=== PATIENT | female | born 1990 | race Caucasian/White ===

== ENCOUNTER → 2016-07-17 | Outpatient (CLI) | payer BC ==
[~2016-07-17] MED LIST: CLIN300C OR; DECADRON OR; DOCU10ELUD PO; FERR225T PO; IBUP600T26 PO; PERCOCET PO; VICO5TAB OR; VICODIN; VICODIN OR
[2016-07-17 21:13] LABS: CONTROL LINE HCG INT CTR LINE PRESENT
== END ==
LOC: M LRY 15:33
PROVIDERS: ATTEND Advanced Practice Midwife
DX: N91.2 Amenorrhea, unspecified (principal)

== ENCOUNTER → 2017-03-27 | Outpatient (REF) | payer BC ==
[2017-03-27 16:44] LABS: CONTROL LINE HCG INT CTR LINE PRESENT
[2017-03-27 16:50] LABS: ALBUMIN 3.7 GM/DL (3.2-5.2); ALBUMIN/GLOBULIN RATIO 0.95 (1.00-1.93); ALKALINE PHOSPHATASE 96 U/L (45-117); ALT/SGPT 72 U/L (12-78); ANION GAP 6 MEQ/L (8-16); AST/SGOT 36 U/L (7-37); BILIRUBIN,TOTAL 0.4 MG/DL (0.2-1.0); BLOOD UREA NITROGEN 12 MG/DL (7-18); CALCIUM LEVEL 8.7 MG/DL (8.5-10.1); CARBON DIOXIDE LEVEL 28 MEQ/L (21-32); CHLORIDE LEVEL 109 MEQ/L (98-107); CHOLESTEROL LEVEL 198 MG/DL (<200); CREATININE FOR GFR 0.78 MG/DL (0.55-1.02); FREE T4 1.13 NG/DL (0.76-1.46); GLOMERULAR FILTRATION RATE > 60.0 (>60); GLUCOSE, FASTING 88 MG/DL (70-105); POTASSIUM SERUM 4.2 MEQ/L (3.5-5.1); SODIUM LEVEL 143 MEQ/L (136-145); TOTAL PROTEIN 7.6 GM/DL (6.4-8.2); TRIGLYCERIDES LEVEL 146 MG/DL (<150)
== END ==
LOC: M SFHCCLAY 10:12
PROVIDERS: ATTEND Family Medicine
DX: R60.0 Localized edema (principal); E66.01 Morbid (severe) obesity due to excess calories; N91.2 Amenorrhea, unspecified

== ENCOUNTER → 2017-11-30 | Outpatient (REF) | payer BC | LOC: M LAB REF 17:09 | DX: Z12.4 Encounter for screening for malignant neoplasm of cervix (principal) | CPT/HCPCS: G0123 ==

== ENCOUNTER → 2018-04-05 | Outpatient (REF) | payer BC ==
[~2018-04-05] MED LIST changes: +KLON0.5T PO; +LAMO100T; +METF500T13; +TOPA100T12 PO; +TRI-LO-MARZIA
== END ==
LOC: M LAB REF 15:17
PROVIDERS: ATTEND Physician Assistant
DX: J02.9 Acute pharyngitis, unspecified (principal)

== ENCOUNTER 2019-01-25 21:54 | Emergency (ER) | payer BC ==
[~2019-01-25] VITALS: Ht 160 cm; Wt 159.1 kg
[~2019-01-25 21:54] MED LIST changes: -DOCU10ELUD PO; +DOCU5LIQ PO; +OXYC1TAB23 PO; -PERCOCET PO
[2019-01-25] MEDS ORDERED: OSEL75CA2 PO (22:23)
[2019-01-25 23:32] LABS: INFLUENZA A AMPLIFICATION NEGATIVE (NEGATIVE); INFLUENZA B AMPLIFICATION NEGATIVE (NEGATIVE)
[2019-01-25] MEDS ORDERED: MUCI600T31 PO (23:56)
[2019-01-25] MEDS ORDERED: BENZ200C70 PO (23:56)
[2019-01-25] MEDS ORDERED: VENTAER INH (23:56)
[2019-01-26] MEDS ORDERED: BENZONATATE 100 MG CAP PO ONE
[2019-01-26 00:15] VITALS: BP 120/65
--- NOTE | 2019-01-26 09:43 | REP ---
REASON: Cough and fever. COMPARISON: No priors. FINDINGS: The superior mediastinal structures are midline. The cardiac silhouette is unremarkable in size, shape, and position. The diaphragmatic surfaces of the lungs are regular, and the costophrenic angles are clear. The pulmonary villafana are clear. The imaged osseous structures are intact. IMPRESSION: There is no acute cardiopulmonary disease. Electronically Signed by Chago Griffith DO 01/26/2019 09:50 A
== END 2019-01-26 00:24 | disposition home or self-care (01) ==
LOC: M ED 21:54
DX: J20.9 Acute bronchitis, unspecified (principal); Z79.899 Other long term (current) drug therapy

== ENCOUNTER → 2019-08-28 | Outpatient (REF) | payer BC ==
[~2019-08-28] MED LIST changes: +BENZ200C70 PO; -LAMO100T; +LAMO100T3; +MUCI600T31 PO; +OSEL75CA2 PO; +VENTAER INH
== END ==
LOC: M SFHCWAGY 17:13
PROVIDERS: ATTEND Nurse Practitioner Women's Health
DX: Z11.3 Encounter for screening for infections with a predominantly sexual mode of transmission (principal)

== ENCOUNTER 2019-08-30 21:45 | Emergency (ER) | payer BC ==
[~2019-08-30] VITALS: Ht 160 cm; Wt 164.3 kg
[2019-08-30 22:26] LABS: BASO # 0.1 10^3/uL (0.0-0.2); BASO % 0.6 % (0.0-1.0); EOS # 0.1 10^3/uL (0.0-0.5); EOS % 1.1 % (0.0-3.0); HEMATOCRIT 39.4 % (36.0-47.0); HEMOGLOBIN 12.5 g/dl (12.0-15.5); LYMPH # 2.8 10^3/uL (1.5-5.0); LYMPH % 30.6 % (24.0-44.0); MEAN CORPUSCULAR HEMOGLOBIN 28.6 pg (27.0-33.0); MEAN CORPUSCULAR HGB CONC 31.7 g/dl (32.0-36.5); MEAN CORPUSCULAR VOLUME 90.2 fl (80.0-96.0); MONO # 0.5 10^3/uL (0.0-0.8); NEUTROPHILS # 5.8 10^3/uL (1.5-8.5); NEUTROPHILS % 62.3 % (36.0-66.0); PLATELET COUNT, AUTOMATED 173 10^3/uL (150-450); RED BLOOD COUNT 4.37 10^6/uL (4.00-5.40); WHITE BLOOD COUNT 9.2 10^3/uL (4.0-10.0)
[2019-08-30 22:36] LABS: PLATELET CLUMPS SMALL AMT; PLATELET ESTIMATE NORMAL (NORMAL)
[2019-08-30] MEDS ORDERED: RHOGAM 300 MCG (1500 IU) INJ (J2790) IM ONE (23:45)
--- NOTE | 2019-08-31 00:15 | REPVR ---
PROCEDURE INFORMATION: Exam: US First Trimester, Transabdominal Exam date and time: 08/30/2019 11:58 PM Age: 29 years old Clinical indication: Lmp or gestational age (in weeks): 8wks; Other: Vag bleeding; ; Additional info: Cesar fr[place] TECHNIQUE: Imaging protocol: Real-time transabdominal obstetrical ultrasound of the maternal pelvis and a first trimester , less than 14 weeks 0 days, with image documentation. COMPARISON: No relevant prior studies available. FINDINGS: Well defined endometrial fluid collection suggests early gestational sac. Mean sac diameter is 10.8 mm. No evidence of implantational hemorrhage. Yolk sac is present. No identifiable pole at this point. Right ovary is not visualized. Left ovary measures 2 x 2.6 x 1.9 cm and demonstrates normal Doppler flow. No abnormal volume of free pelvic fluid and no abnormal adnexal mass. IMPRESSION: Probable early intrauterine at roughly 5 weeks estimated gestational age. No pole is identified at this point. Follow-up with repeat ultrasound and serial beta-hCG measurements is recommended, as indicated clinically. No ancillary evidence of ectopic . Electronically signed by: Benjy So On 08/31/2019 00:14:26 AM
[2019-08-31 01:17] VITALS: BP 154/76
== END 2019-08-31 01:31 | disposition home or self-care (01) ==
LOC: M ED 21:45
DX: O20.0 Threatened abortion (principal); O99.341 Other mental disorders complicating pregnancy, first trimester; F41.9 Anxiety disorder, unspecified; O99.211 Obesity complicating pregnancy, first trimester; Z3A.01 Less than 8 weeks gestation of pregnancy
CPT/HCPCS: 36415; 76801; 76817; 81001; 84702; 85025; 86850; 86900; 86901; 93976; 96372; 99283; J2790

== ENCOUNTER → 2019-09-02 | Outpatient (REF) | payer BC | LOC: M PLALAB 12:48 | PROVIDERS: ATTEND Advanced Practice Midwife | DX: O20.0 Threatened abortion (principal) ==

== ENCOUNTER → 2019-09-26 | Outpatient (REF) | payer BC ==
[2019-09-26 15:32] LABS: HEMATOCRIT 38.6 % (36.0-47.0); HEMOGLOBIN 12.7 g/dl (12.0-15.5); MEAN CORPUSCULAR HEMOGLOBIN 28.9 pg (27.0-33.0); MEAN CORPUSCULAR HGB CONC 32.9 g/dl (32.0-36.5); MEAN CORPUSCULAR VOLUME 87.7 fl (80.0-96.0); PLATELET COUNT, AUTOMATED 163 10^3/uL (150-450); WHITE BLOOD COUNT 9.2 10^3/uL (4.0-10.0)
[2019-09-26 17:14] LABS: CHLAMYDIA DNA AMPLIFICATION NEGATIVE (NEGATIVE); GC DNA AMPLIFICATION NEGATIVE (NEGATIVE)
[2019-09-29 12:28] LABS: HIV 1&2 SCREEN CENTAUR NEGATIVE (NEGATIVE)
[2019-09-29 12:41] LABS: HEPATITIS C VIRUS ABY INDEX 0.2 INDEX (<0.8)
== END ==
LOC: M PLALAB 11:05
PROVIDERS: ATTEND Specialist
DX: Z34.81 Encounter for supervision of other normal pregnancy, first trimester (principal)

== ENCOUNTER 2019-11-19 01:30 | Emergency (ER) | payer BC ==
[~2019-11-19 01:30] MED LIST changes: +ACETAMINOPHEN 325 MG TAB ONE
[2019-11-20] MEDS ORDERED: ACETAMINOPHEN 325 MG TAB ONE (00:31)
[2019-11-20] MEDS ORDERED: ONDANSETRON 4 MG ORAL DISINTEGRATING TAB ONE (03:38)
[2020-01-04 05:06] LABS: BASO # 0.1 10^3/uL (0.0-0.2); BASO % 0.5 % (0.0-1.0); EOS # 0.1 10^3/uL (0.0-0.5); EOS % 1.2 % (0.0-3.0); HEMATOCRIT 35.7 % (36.0-47.0); HEMOGLOBIN 11.6 g/dl (12.0-15.5); LYMPH # 2.3 10^3/uL (1.5-5.0); LYMPH % 23.7 % (24.0-44.0); MEAN CORPUSCULAR HEMOGLOBIN 28.9 pg (27.0-33.0); MEAN CORPUSCULAR HGB CONC 32.5 g/dl (32.0-36.5); MONO # 0.4 10^3/uL (0.0-0.8); MONO % 3.9 % (0.0-5.0); NEUTROPHILS # 6.9 10^3/uL (1.5-8.5); NEUTROPHILS % 70.2 % (36.0-66.0); PLATELET COUNT, AUTOMATED 170 10^3/uL (150-450); RED BLOOD COUNT 4.01 10^6/uL (4.00-5.40); WHITE BLOOD COUNT 9.9 10^3/uL (4.0-10.0)
[2020-01-04 05:32] LABS: APPEARANCE, URINE MANUAL HAZY (CLEAR); COLOR, URINE MANUAL YELLOW (YELLOW)
[2020-01-04 05:33] LABS: BILIRUBIN, URINE MANUAL NEGATIVE (NEGATIVE); BLOOD URINE MANUAL POSITIVE (NEGATIVE); GLUCOSE, URINE (UA) MANUAL NEGATIVE (NEGATIVE); KETONE, URINE MANUAL NEGATIVE (NEGATIVE); LEUKOCYTE ESTERASE, URINE MAN POSITIVE (NEGATIVE); NITRITE, URINE MANUAL NEGATIVE (NEGATIVE); PROTEIN, URINE MANUAL TRACE mg/dL (NEGATIVE); SPECIFIC GRAVITY,URINE MANUAL 1.021 (1.002-1.035); UROBILINOGEN, URINE MANUAL NORMAL (NORMAL)
[2020-01-04 05:34] LABS: BACTERIA, URINE LARGE AMOUNT; CALCIUM OXALATE CRYSTALS,URINE LARGE AMOUNT /hpf; RBC, URINE 0-1 /hpf (0-3); SQUAMOUS EPITHELIAL CELL URINE MOD AMOUNT /hpf (SMALL AMT)
[2020-01-04 05:35] LABS: HYALINE CAST, URINE NONE SEEN /lpf (0-1); MUCUS, URINE SMALL AMOUNT (NEGATIVE)
[2020-02-09 17:32] LABS: ALT/SGPT 28 U/L (12-78); BILIRUBIN,DIRECT < 0.1 MG/DL (0.0-0.2); BILIRUBIN,TOTAL 0.3 MG/DL (0.2-1.0); BLOOD UREA NITROGEN 6 MG/DL (7-18); CALCIUM LEVEL 8.7 MG/DL (8.5-10.1); CARBON DIOXIDE LEVEL 23 MEQ/L (21-32); CHLORIDE LEVEL 109 MEQ/L (98-107); CREATININE FOR GFR 0.72 MG/DL (0.55-1.30); GLOMERULAR FILTRATION RATE > 60.0 (>60); GLUCOSE, FASTING 106 MG/DL (70-100); LIPASE 91 U/L (73-393); POTASSIUM SERUM 3.5 MEQ/L (3.5-5.1); SODIUM LEVEL 139 MEQ/L (136-145); TOTAL PROTEIN 6.9 GM/DL (6.4-8.2)
== END 2019-11-20 03:40 | disposition home or self-care (01) ==
LOC: M ED 01:30
DX: O26.832 Pregnancy related renal disease, second trimester (principal); N23 Unspecified renal colic; Z3A.17 17 weeks gestation of pregnancy
CPT/HCPCS: 76775; 76811; 80048; 80076; 81000; 83690; 85025; 87086; 99284; Q0162

== ENCOUNTER → 2019-12-12 | Outpatient (CLI) | payer BC ==
[~2019-12-12] MED LIST changes: -ACETAMINOPHEN 325 MG TAB ONE
--- NOTE | 2020-01-09 15:08 | REP ---
COMPLETE OBSTETRIC ULTRASOUND CLINICAL: Anatomical assessment. TECHNIQUE: Transabdominal obstetrical ultrasound with color Doppler evaluation. FINDINGS: Ultrasound examination demonstrates a single live intrauterine in cephalic presentation. motion was identified by the technologist. Placenta noted posteriorly and grade 1 without evidence for placenta previa or abruption. Amniotic fluid volume is normal. Cervix measures 3 cm in length and appears closed. MEASUREMENTS: BPD 47 mm 20 weeks 2 days HC 180 mm 20 weeks 4 days AC 159 mm 21 weeks 1 day FL 33 mm 20 weeks 1 day HL 34 mm 21 weeks 5 days Heart Rate 136 Beats per minute Estimated age by current measurements 20 weeks 4 days with estimated date of delivery 04/26/2020. Estimated weight 364 grams (greater than 98th percentile). Anatomical assessment demonstrates normal cisterna magna, cavum, thalamus, spine, stomach, kidneys/bladder, cardiac ventricular outflow tracts, three- vessel cord/cord insertion, facial features, and extremities. Four chamber heart views demonstrate echogenic focus within the right and left cardiac ventricles likely prominent chordae tendineae. IMPRESSION: * Single live intrauterine in cephalic presentation. Estimated weight is greater than 98th percentile and may warrant followup. * Anatomical findings related to the heart may warrant follow-up examination. MTDD
== END ==
LOC: M WHC 08:55
PROVIDERS: ATTEND Specialist
DX: Z34.82 Encounter for supervision of other normal pregnancy, second trimester (principal); Z3A.20 20 weeks gestation of pregnancy

== ENCOUNTER → 2020-02-02 | Outpatient (CLI) | payer BC ==
--- NOTE | 2020-02-02 10:18 | REP ---
INDICATION: F/U ANATOMY COMPARISON: 12/12/2019 TECHNIQUE: Transabdominal obstetrical ultrasound with color Doppler evaluation. FINDINGS: Examination demonstrates a single live intrauterine in cephalic presentation. motion is identified by technologist. Placenta is noted posterior and grade 1 without evidence for placenta previa or abruption. Amniotic fluid volume is normal. Cervix measures 3.1 cm in length and appears closed. No evidence for nuchal cord. Gestational age by LMP 26 weeks 4 days with NOMAN 05/06/2020. Gestational age by current measurements 26 weeks 5 days with NOMAN 05/05/2020. FHR equals 156 beats per minute. HC * [6.6 cm]: 25.0 cm * [26 weeks 4 days]: 27 weeks 1 day AC * [6.6 cm]: 22.0 cm * [26 weeks 4 days]: 26 weeks 3 days FL * [6.6 cm]: 4.9 cm * [26 weeks 4 days]: 26 weeks 3 days HL * [6.6 cm]: 4.5 cm * [26 weeks 4 days]: 26 weeks 4 days Estimated weight 950 grams (36thpercentile). Limited evaluation of the heart on current examination due to positioning. IMPRESSION: Single live intrauterine in cephalic presentation demonstrating appropriate estimated weight and growth. Anatomical re-evaluation is incomplete due to positioning on current examination. <Electronically signed by Franck Hankins > 02/02/20 0219
== END ==
LOC: M WHC 09:26
PROVIDERS: ATTEND Specialist
DX: Z34.82 Encounter for supervision of other normal pregnancy, second trimester (principal); Z3A.26 26 weeks gestation of pregnancy

== ENCOUNTER 2020-02-04 23:01 | Outpatient (CLI) | payer BC ==
[~2020-02-04] VITALS: Ht 160 cm; Wt 164.0 kg
[2020-02-04 23:11] VITALS: BP 123/57
== END 2020-02-05 00:21 | disposition home or self-care (01) ==
LOC: M LDO 23:01
PROVIDERS: ATTEND Advanced Practice Midwife
DX: O26.892 Other specified pregnancy related conditions, second trimester (principal); Z3A.27 27 weeks gestation of pregnancy
CPT/HCPCS: G0378; G0463

== ENCOUNTER → 2020-02-26 | Outpatient (REF) | payer BC ==
[2020-02-26 17:19] LABS: HEMATOCRIT 36.2 % (36.0-47.0); HEMOGLOBIN 11.3 g/dl (12.0-15.5); MEAN CORPUSCULAR HEMOGLOBIN 28.2 pg (27.0-33.0); MEAN CORPUSCULAR HGB CONC 31.2 g/dl (32.0-36.5); MEAN CORPUSCULAR VOLUME 90.3 fl (80.0-96.0); PLATELET COUNT, AUTOMATED 182 10^3/uL (150-450); RED BLOOD COUNT 4.01 10^6/uL (4.00-5.40); WHITE BLOOD COUNT 11.4 10^3/uL (4.0-10.0)
== END ==
LOC: M PLALAB 14:13
PROVIDERS: ATTEND Specialist
DX: Z36.89 Encounter for other specified antenatal screening (principal); Z3A.00 Weeks of gestation of pregnancy not specified
CPT/HCPCS: 36415; 82950; 85027; 86850; 86900; 86901; J2790

== ENCOUNTER → 2020-03-15 | Outpatient (REF) | payer BC ==
[2020-03-15 14:18] LABS: HEMATOCRIT 35.5 % (36.0-47.0); HEMOGLOBIN 10.9 g/dl (12.0-15.5); MEAN CORPUSCULAR HEMOGLOBIN 27.2 pg (27.0-33.0); MEAN CORPUSCULAR HGB CONC 30.7 g/dl (32.0-36.5); MEAN CORPUSCULAR VOLUME 88.5 fl (80.0-96.0); PLATELET COUNT, AUTOMATED 192 10^3/uL (150-450); RED BLOOD COUNT 4.01 10^6/uL (4.00-5.40)
== END ==
LOC: M PLALAB 09:27
PROVIDERS: ATTEND Specialist
DX: O99.019 Anemia complicating pregnancy, unspecified trimester (principal); Z3A.00 Weeks of gestation of pregnancy not specified

== ENCOUNTER 2020-03-16 08:55 | Outpatient (CLI) | payer BC ==
[~2020-03-16] VITALS: Ht 160 cm; Wt 164.4 kg
[2020-03-16 09:10] VITALS: BP 136/73
[2020-03-16 10:10] VITALS: BP 135/62
--- NOTE | 2020-03-16 10:50 | IPNPDOC ---
Obstetrical Progress Note Date of Service Mar 16, 2020 Subjective 19 yo at 33 weeks presents to triage after a fall on her hands and legs in her driveway. She hit the left side of her abdomen. Good movement upon presentation to triage. no bleeding. Objective Vital Signs Date Time Temp Pulse Resp B/P (MAP) Pulse Ox O2 Delivery O2 Flow Rate FiO2 03/16/20 09:10 97.5 85 22 136/73 (94) Assessment Variability: Moderate Accelerations: Positive Decelerations: None Heart Rate Tracing: Category I Tocometer Contractions: No Assessment and Plan Age: 29 : 3 Term: 2 Status: Reassuring Additional Comments 29 yo at 33 weeks s/p fall Extended monitoring Testing reassuring f-u office as scheduled JULIENNE BAR MD Mar 16, 2020 10:49
[2020-03-16 11:40] VITALS: BP 114/67
== END 2020-03-16 12:00 | disposition home or self-care (01) ==
LOC: M LDO 08:55
PROVIDERS: ATTEND Specialist
DX: O99.891 Other specified diseases and conditions complicating pregnancy (principal); Z3A.33 33 weeks gestation of pregnancy; W01.0XXA Fall on same level from slipping, tripping and stumbling without subsequent striking against object, initial encounter
CPT/HCPCS: 59025; G0378; G0463

== ENCOUNTER 2020-03-23 12:12 | Outpatient (CLI) | payer BC ==
[~2020-03-23] VITALS: Ht 160 cm; Wt 163.3 kg
[2020-03-23] VITALS (7 sets, daily range): BP systolic 117–123; BP diastolic 55–66
[2020-03-23] MEDS ORDERED: IRON SUCROSE 500 MG in NS 250 ML OVER 4 HRS IV ONE (12:30)
== END 2020-03-23 17:46 | disposition home or self-care (01) ==
LOC: M INFU 12:12
PROVIDERS: ATTEND Specialist
DX: O99.019 Anemia complicating pregnancy, unspecified trimester (principal); Z3A.00 Weeks of gestation of pregnancy not specified
CPT/HCPCS: 96365; 96366; J1756

== ENCOUNTER 2020-03-26 13:59 | Outpatient (CLI) | payer BC ==
[~2020-03-26] VITALS: Ht 160 cm; Wt 165.3 kg
[2020-03-26 14:13] VITALS: BP 135/76
[2020-03-26] MEDS ORDERED: PRENTAB9 PO (14:21)
--- NOTE | 2020-03-26 14:42 | IPNPDOC ---
Text Note Date of Service The patient was seen on 03/26/20. NOTE Subjective: Ailyn is a 29 y/o who presents today with decreased movement over the last few days. She reports that fetus has been moving but not as strong as she is used to, stating "her hiccups were stronger than her movements, and my couldn't feel her even when I thought she was having stronger kicks". Denies contractions, vaginal bleeding, LOF. Reports last meal at 0930, and crackers since then with water. Medical Hx.: Depression, Bipolar, Ovarian Cysts, throat abscess, Morbid Obesity BMI 64.55 Surgical Hx.: C/Section x2 (2011, 2012), tonsillectomy (2009) Family Hx.: Hypertension, thyroid "issues", and cervical "issues" Social Hx.: Former smoker, denies drug and alcohol use, Objective: VSS, FHR 150bpm, Category 1 tracing. No Uterine contractions by [place]. Plan: Regular Diet, BPP, and NST VS,Fishbone, I+O VS, Fishbone, I+O Vital Signs Date Time Temp Pulse Resp B/P (MAP) Pulse Ox O2 Delivery O2 Flow Rate FiO2 03/26/20 14:13 97.0 96 18 135/76 (95) Philly Goode CNM Mar 26, 2020 14:42
--- NOTE | 2020-03-26 15:22 | REP ---
INDICATION: decreased movement. COMPARISON: Obstetric ultrasound dated 02/02/2020. TECHNIQUE: Mole multiple real-time and Doppler ultrasound images of the gravid uterus. FINDINGS: There is a single intrauterine gestation in a cephalic presentation. The placenta is anterior. There is no placenta previa or abruptio. heart rate is 150 beats per minute. Amniotic fluid index is 15.9 (7.9-24.9). biophysical profile: Breathing-2 Tone-2 Movement-2 AFV-2 Total 11/21 Umbilical artery Doppler S/D: 2.55 (1.69-3.60) RI: 0.61 (0.46-0.72). PSV 54.4 centimeters/second EDV 21.3 centimeters/second ASSESSMENT: Normal biophysical profile. IMPRESSION: Normal biophysical profile. <Electronically signed by Jet Martínez > 03/26/20 [id number]
--- NOTE | 2020-03-26 15:44 | IPNPDOC ---
Text Note Date of Service The patient was seen on 03/26/20. NOTE Outpatient Subjective: Ailyn states movement continues to be subtle, but present. No vaginal bleeding, LOF, contractions/cramping. She has eaten some crackers and peanut butter and drank water while here. Objective: BPP 8/8 with posterior placenta, vertex presentation, DIAMOND 15.9, S/D 2.55, no evidence of placenta previa or abruption. NST Reactive Category 1, and VSS. Plan: Discharge home, encouraged to call with further concerns of decreased movement, signs of PTL, vaginal bleeding, or LOF. Reviewed access to care after hours, and plan to see her in the office on Sunday for her regularly scheduled appointment. VS,[place], I+O VS, Fishbone, I+O Vital Signs Date Time Temp Pulse Resp B/P (MAP) Pulse Ox O2 Delivery O2 Flow Rate FiO2 03/26/20 14:13 97.0 96 18 135/76 (95) Philly Goode CNM Mar 26, 2020 15:44
== END 2020-03-26 15:40 | disposition home or self-care (01) ==
LOC: M LDO 13:59
PROVIDERS: ATTEND Advanced Practice Midwife
DX: O36.8190 Decreased fetal movements, unspecified trimester, not applicable or unspecified (principal); Z3A.00 Weeks of gestation of pregnancy not specified
CPT/HCPCS: 59025; 76815; 76819; 76820; G0378; G0463

== ENCOUNTER → 2020-04-06 | Outpatient (REF) | payer BC ==
[~2020-04-06] MED LIST changes: +PRENTAB9 PO
== END ==
LOC: M SFHCWAGY 10:09
PROVIDERS: ATTEND Specialist
DX: Z36.89 Encounter for other specified antenatal screening (principal); Z3A.00 Weeks of gestation of pregnancy not specified

== ENCOUNTER → 2020-04-21 | Outpatient (CLI) | payer BC | LOC: M LABSMTC 09:51 | PROVIDERS: ATTEND Anesthesiology | DX: Z01.812 Encounter for preprocedural laboratory examination (principal); Z20.828 Contact with and (suspected) exposure to other viral communicable diseases ==

== ENCOUNTER 2020-04-26 07:12 | Inpatient (IN) | payer BC ==
[~2020-04-26] VITALS: Ht 160 cm; Wt 171.2 kg
[2020-04-26] MEDS ORDERED: LACTATED RINGER'S 1000 ML IV STA (07:14)
[2020-04-26] MEDS ORDERED: LR 1,000 ML IV SCH ×2 (07:14→11:30)
[2020-04-26] MEDS ORDERED: ceFAZolin SOD 2 GM in IV 1 EA IV ONE (07:15)
[2020-04-26] MEDS ORDERED: BICITRA 30ML SOLN UDC PO ONE (07:15)
[2020-04-26] MEDS ORDERED: OXYC1TAB23 PO (07:17)
[2020-04-26 08:42] LABS: HEMATOCRIT 37.4 % (36.0-47.0); HEMOGLOBIN 11.8 g/dl (12.0-15.5); MEAN CORPUSCULAR HEMOGLOBIN 27.8 pg (27.0-33.0); MEAN CORPUSCULAR HGB CONC 31.6 g/dl (32.0-36.5); MEAN CORPUSCULAR VOLUME 88.2 fl (80.0-96.0); PLATELET COUNT, AUTOMATED 210 10^3/uL (150-450); RED BLOOD COUNT 4.24 10^6/uL (4.00-5.40); WHITE BLOOD COUNT 12.2 10^3/uL (4.0-10.0)
[2020-04-26] MEDS: PRENATAL VITAMINS CHEWABLE TABLET PO SCH (09:00)
[2020-04-26] MEDS ORDERED: MORPHINE PRES-FREE INJ 10 MG/10 ML VIAL (J2274) As Ordered ONE (09:44)
[2020-04-26] MEDS ORDERED: OXYTOCIN INJ 10 UNITS/ML VIAL (J2590) As Ordered ONE (09:44)
[2020-04-26] MEDS ORDERED: ONDANSETRON 4MG/2ML VIAL As Ordered ONE ×2 (09:44→12:19)
[2020-04-26] MEDS ORDERED: NALBUPHINE HCL 10 MG/ML AMP (J2300) IV PRN (09:56)
[2020-04-26] MEDS ORDERED: ONDANSETRON 4MG/2ML VIAL IV PRN ×3 (09:56→11:30)
[2020-04-26] MEDS ORDERED: diphenhydrAMINE 50MG/ML VIAL (J1200) IV PRN (09:56)
[2020-04-26] MEDS ORDERED: NALOXONE INJ 0.4MG/1ML VIAL (J2310 PER 1MG) IV PRN ×2 (09:56)
[2020-04-26] MEDS ORDERED: METOCLOPRAMIDE INJ 10MG/2ML VIAL (J2765 PER 1) IV PRN ×2 (09:56→11:30)
[2020-04-26] MEDS ORDERED: ePHEDrine SULFATE 25 MG/5 ML(5MG/ML) SYRINGE As Ordered ONE (10:07)
[2020-04-26] MEDS: LR 1,000 ML IV SCH ×2 (11:01→19:34)
[2020-04-26] MEDS ORDERED: OXYTOCIN DRIP 30 UNITS in IV 1 EA IV SCH (11:01)
[2020-04-26] MEDS ORDERED: DOCUSATE SODIUM 100MG CAPSULE PO PRN (11:15)
[2020-04-26] MEDS ORDERED: MEASLES,MUMPS,RUBELLA VACCINE INJ (MMR-II) (90707) SC SCH (11:15)
[2020-04-26] MEDS ORDERED: RHOGAM 300 MCG (1500 IU) INJ (J2790) IM SCH (11:15)
--- NOTE | 2020-04-26 11:16 | ROOPDOC ---
[facility] Report Of Operation Report of Operation DATE OF PROCEDURE: 04/26/20 Report of operation Preoperative diagnosis: 39 2/7 weeks, prior x 2 Postoperative diagnosis: same Procedure: Repeat low transverse section and bilateral tubal ligation. Surgeon: Julienne Bar M.D. Asst.: Sonya Buenrostro CNM EBL: 600 ml. Urine output: 100 mL's. Findings: 8 lbs. 12 oz. female , Apgars 9 and 9 g, Peritoneal window in lower uterine segment, normal fallopian tubes and ovaries. Operative summary: Patient taken to the operative room where spinal anesthesia was induced. She was prepped and draped in a sterile fashion in the supine position. A Garner catheter was placed. A Pfannenstiel skin incision was made with scalpel. Fascia was incised and extended bilaterally. The peritoneal cavity was entered. A Mobius retractor was placed. A bladder flap was created. A curvilinear incision was made in lower uterine segment until Clear fluid was noted. The incision was extended manually. The was delivered from the vertex position without difficulty. Cord was double clamped and cut. The infant was handed to awaiting nurses. The placenta was expressed. Uterus was closed with O-Vicryl in a running locked fashion. A second imbricating layer of Vicryl was placed. Attention was turned to the fallopian tubes. A Laurie clamp was used to grasp the fallopian tubes at the midportion.. A window was created in the broad ligament free tie of 2-0 chromic was placed around the segment of tube on either side of the clamp. A Segment of tube was excised bilaterally and sent to pathology. Peritoneum was closed with 2-0 Vicryl a running fashion. Deep subcutaneous layer closed with O-Chromic. Fascia was closed with 0 Vicryl in running fashion. Skin was closed 4-0 Monocryl subcuticular sutures. Sponge, instrument and needle counts were correct. Sonya Buenrostro CNM, assisted with all aspects of the procedure. She helped each layer of the incision and deliver the fetus. JULIENNE BAR MD Apr 26, 2020 11:16
[2020-04-26] MEDS ORDERED: KETOROLAC 30 MG/ML 1ML VIAL IV PRN (11:30)
[2020-04-26] MEDS ORDERED: fentaNYL 100 MCG/2 ML INJECTION (J3010) IV PRN (11:30)
[2020-04-26] MEDS ORDERED: PERCOCET 5MG/325MG TAB PO PRN (11:30)
[2020-04-26] MEDS ORDERED: OXYTOCIN 30 UNITS IN 0.9% NaCl 500ML IV BAG (J2590) As Ordered ONE (12:52)
[2020-04-26] MEDS ORDERED: KETOROLAC 30 MG/ML 1ML VIAL As Ordered ONE (12:55)
[2020-04-26] MEDS: KETOROLAC 30 MG/ML 1ML VIAL IV SCH ×2 (12:56→18:48)
[2020-04-26 13:30] VITALS: BP 128/62
[2020-04-26 14:00] VITALS: BP 138/77
[2020-04-26 15:14] VITALS: BP 121/66
[2020-04-26] MEDS ORDERED: PROMETHAZINE INJ 25 MG/ML VIAL (J2550) IV ONE (15:45)
[2020-04-26 16:12] VITALS: BP 137/88
[2020-04-26 17:39] VITALS: BP 135/75
[2020-04-26 22:00] VITALS: BP 141/66
[2020-04-27] MEDS: KETOROLAC 30 MG/ML 1ML VIAL IV SCH (01:11)
[2020-04-27 02:00] VITALS: BP 126/66
[2020-04-27] MEDS: LR 1,000 ML IV SCH (03:01)
[2020-04-27 06:00] VITALS: BP 112/55
--- NOTE | 2020-04-27 07:54 | IPNPDOC ---
Progress Note Date of Service: Apr 27, 2020 Day#: 1 Progress Note SUBJECT: Ailyn is a 29-year-old 4 now Para 3-0-1-3 status post uncomplicated scheduled C/Section doing well day # 1. She has not been ambulating as of yet, plan to get OOB this AM. Garner catheter was removed this AM, due to void. Nauseated yesterday but was able to tolerate a regular diet for dinner without issue. Difficulty with , infant not latching. Reports lochia is like a normal period. Pain controlled with IV Toradol. Sequential compression device on lower legs bilaterally. Denies headache, visual changes, SOB, chest pain, epigastric pain. OBJECTIVE: VITAL SIGNS: Within normal limits, afebrile. Alert and oriented times three. Respiratory: Regular rate, no accessory muscle use. Abdomen: Fundus firm at U-1. Soft, NTTP. Dressing intact, 2 small spots of bleeding on dressing unchanged since marked. Extremities: +1 bilateral pitting edema to knees. DTRs +2, negative clonus. Negative calf tenderness. Minimal lochia. ASSESSMENT: Postoperative Day 1 PLAN: 1. May shower today 2. Tylenol and Motrin for pain. 3. Encourage breast feeding and ambulation. 4. Encourage PO hydration 5. Normal nursing care 6. Sequential compression device on while in bed. 7. Consultation. VS, I&O, 24H, Fishbone Vital Signs/I&O Vital Signs Date Time Temp Pulse Resp B/P (MAP) Pulse Ox O2 Delivery O2 Flow Rate FiO2 04/27/20 06:00 96.9 75 18 112/55 (74) 98 Room Air I&O- Last 24 Hours up to 6 AM 04/27/20 06:00 Intake Total 1450 ml Output Total 2370 ml Balance -920 ml Laboratory Data 24H LABS Laboratory Tests 2 04/26/20 08:24: Nucleated Red Blood Cells % (auto) 0.0 04/26/20 08:25: Syphilis Serology NONREACTIVE CBC/BMP Laboratory Tests 04/26/20 08:24 TUSHAR CASTILLO CNM Apr 27, 2020 07:54
[2020-04-27] MEDS: PRENATAL VITAMINS CHEWABLE TABLET PO SCH (09:00)
[2020-04-27] MEDS: IBUPROFEN 800 MG TAB PO SCH ×2 (09:00→17:00)
[2020-04-27 09:58] VITALS: BP 118/59
[2020-04-27 10:13] LABS: HEMATOCRIT 31.6 % (36.0-47.0); MEAN CORPUSCULAR HEMOGLOBIN 28.2 pg (27.0-33.0); MEAN CORPUSCULAR HGB CONC 31.6 g/dl (32.0-36.5); MEAN CORPUSCULAR VOLUME 89.3 fl (80.0-96.0); PLATELET COUNT, AUTOMATED 161 10^3/uL (150-450); RED BLOOD COUNT 3.54 10^6/uL (4.00-5.40); WHITE BLOOD COUNT 11.5 10^3/uL (4.0-10.0)
[2020-04-27] MEDS ORDERED: IBUPROFEN 800 MG TAB PO SCH (15:00)
[2020-04-27] MEDS: PERCOCET 5MG/325MG TAB PO PRN ×2 (17:31→21:31)
[2020-04-27 18:00] VITALS: BP 124/62
[2020-04-27 22:23] VITALS: BP 145/69
[2020-04-28] MEDS: IBUPROFEN 800 MG TAB PO SCH ×3 (01:23→17:35)
[2020-04-28] MEDS: PERCOCET 5MG/325MG TAB PO PRN ×3 (03:31→20:02)
[2020-04-28 06:00] VITALS: BP 119/59
--- NOTE | 2020-04-28 06:05 | DS.PDOC ---
Discharge Summary General Date of Admission Apr 26, 2020 at 07:12 Date of Discharge 04/28/20 Attending Physician: JULIENNE BAR MD Discharge Summary PROCEDURES PERFORMED DURING STAY: section 2. Tubal ligation 3. Spinal anesthesia. ADMITTING DIAGNOSES: 1. History of section with satisfied. 2 undesired fertility. DISCHARGE DIAGNOSES: 1. History of section with satisfied. 2 undesired fertility COMPLICATIONS/CHIEF COMPLAINT: Previous . HISTORY OF PRESENT ILLNESS: 29-year-old with a history of 2 prior section presented for scheduled section. She had expressed satisfied parity with undesired fertility. She underwent uncomplicated section productive of a liveborn female Apgars 9 and 9 weight was 8 lbs. 12 oz. There is a peritoneal window in the lower uterine segment during the surgery. Estimated blood loss was 600 mg. Patient did well postoperatively by postoperative day #3 had met all discharge criteria is as discharged home in stable condition DISCHARGE MEDICATIONS: Please see below. ALLERGIES: Please see below. PHYSICAL EXAMINATION ON DISCHARGE: VITAL SIGNS: Please see below. GENERAL: Well-appearing ABDOMINAL EXAMINATION: Appropriately tender. Incision was dressed NEUROLOGICAL EXAMINATION: Grossly intact PSYCHIATRIC EXAMINATION: Appropriate LABORATORY DATA: Please see below. ACTIVITY: As tolerated. DIET: Regular DISCHARGE PLAN: Home DISPOSITION: . DISCHARGE INSTRUCTIONS: 1. Follow-up in 2 weeks for incision check 2. Remain on pelvic rest for 6 weeks 3. Reports severe pain heavy vaginal bleeding fever or incisional issues. DISCHARGE CONDITION: Stable. Vital Signs/I&Os Vital Signs Date Time Temp Pulse Resp B/P (MAP) Pulse Ox O2 Delivery O2 Flow Rate FiO2 04/28/20 06:00 97.6 85 18 119/59 (79) 97 Room Air I&O- Last 24 Hours up to 6 AM 04/28/20 06:00 Output Total 400 ml Balance -400 ml Laboratory Data Labs 24H Laboratory Tests 2 04/27/20 10:03: Nucleated Red Blood Cells % (auto) 0.0 CBC/BMP Laboratory Tests 04/27/20 10:03 Discharge Medications Scheduled No.137/Iron/Folic Acd ( Vitamin Tablet) 1 Each Tablet, 1 TAB PO DAILY, (Reported) Scheduled PRN Oxycodone HCl/Acetaminophen (Oxycodone-Acetaminophen 5-325) 1 Each Tablet, 1 TAB PO TIDP PRN for pain Allergies Coded Allergies: No Known Allergies (Verified , 04/12/20) SHANE SOLORZANO MD. Apr 28, 2020 06:05
[2020-04-28] MEDS: PRENATAL VITAMINS CHEWABLE TABLET PO SCH (08:15)
[2020-04-28 18:00] VITALS: BP 122/60
[2020-04-29] MEDS: IBUPROFEN 800 MG TAB PO SCH ×2 (01:34→09:07)
[2020-04-29 06:00] VITALS: BP 134/70
[2020-04-29] MEDS: PERCOCET 5MG/325MG TAB PO PRN (07:39)
[2020-04-29] MEDS: PRENATAL VITAMINS CHEWABLE TABLET PO SCH (08:50)
== END 2020-04-29 12:48 | disposition home or self-care (01) | DRG 540 ==
LOC: M LDI 07:12 → M OBS 13:39
PROVIDERS: ADMIT Specialist; ATTEND Specialist
PROC: 0UB70ZZ Excision of Bilateral Fallopian Tubes, Open Approach (ICD-10-PCS; 2020-04-26)
PROC: 10D00Z1 Extraction of Products of Conception, Low, Open Approach (ICD-10-PCS; principal; 2020-04-26 09:30)
DX: O34.211 Maternal care for low transverse scar from previous cesarean delivery (principal); Z3A.39 39 weeks gestation of pregnancy; Z37.0 Single live birth; Z30.2 Encounter for sterilization

== ENCOUNTER 2021-03-25 10:34 | Outpatient (CLI) | payer BC ==
[~2021-03-25] VITALS: Ht 160 cm; Wt 154.0 kg
[~2021-03-25 10:34] MED LIST changes: +ALBUTEROL 90 MCG/ACT 8GM HFA INHALER INH PRN; +ALBUTEROL SULFATE 2.5 MG/0.5 ML INH NEB SOLN INH PRN; +CASIRIVIMAB (REGN10933) 600 MG, IMDEVIMAB (REGN10987) 600 MG in NS 250 ML IV ONE; +EPINEPHrine INJ 1 MG/ML 1ML AMP IM PRN; +NS 1,000 ML IV SCH; +diphenhydrAMINE 50MG/ML VIAL (J1200) IV PRN; +methylPREDNISolone 125MG 2ML VIAL IV PRN
[2021-03-25 10:53] VITALS: BP 135/82
[2021-03-25 11:23] VITALS: BP 156/78
[2021-03-25 11:53] VITALS: BP 138/69
[2021-03-25 12:53] VITALS: BP 138/72
== END 2021-03-25 12:53 | disposition home or self-care (01) ==
LOC: M OPCLI4PR 10:34
PROVIDERS: ATTEND Physician Assistant
DX: U07.1 COVID-19 (principal)

== ENCOUNTER → 2022-04-24 | Outpatient (CLI) | payer BC ==
[~2022-04-24] MED LIST changes: -ALBUTEROL 90 MCG/ACT 8GM HFA INHALER INH PRN; -ALBUTEROL SULFATE 2.5 MG/0.5 ML INH NEB SOLN INH PRN; -CASIRIVIMAB (REGN10933) 600 MG, IMDEVIMAB (REGN10987) 600 MG in NS 250 ML IV ONE; -EPINEPHrine INJ 1 MG/ML 1ML AMP IM PRN; -NS 1,000 ML IV SCH; -diphenhydrAMINE 50MG/ML VIAL (J1200) IV PRN; -methylPREDNISolone 125MG 2ML VIAL IV PRN
[2022-04-24 13:17] LABS: BASO # 0.1 10^3/uL (0.0-0.2); BASO % 0.6 % (0.0-1.0); EOS # 0.1 10^3/uL (0.0-0.5); EOS % 1.3 % (0.0-3.0); HEMATOCRIT 39.8 % (36.0-47.0); HEMOGLOBIN 12.4 g/dl (12.0-15.5); LYMPH # 2.5 10^3/uL (1.5-5.0); LYMPH % 26.7 % (24.0-44.0); MEAN CORPUSCULAR HEMOGLOBIN 29.2 pg (27.0-33.0); MEAN CORPUSCULAR HGB CONC 31.2 g/dl (32.0-36.5); MEAN CORPUSCULAR VOLUME 93.9 fl (80.0-96.0); MONO # 0.4 10^3/uL (0.0-0.8); MONO % 4.6 % (2.0-8.0); NEUTROPHILS # 6.2 10^3/uL (1.5-8.5); NEUTROPHILS % 65.7 % (36.0-66.0); PLATELET COUNT, AUTOMATED 183 10^3/uL (150-450); RED BLOOD COUNT 4.24 10^6/uL (4.00-5.40); WHITE BLOOD COUNT 9.4 10^3/uL (4.0-10.0)
[2022-04-24 13:36] LABS: THYROID STIMULATING HORMONE 5.636 uIU/ML (0.55-4.78)
[2022-04-24 13:37] LABS: FREE T3 2.9 PG/ML (2.3-4.2)
[2022-04-24 13:40] LABS: ALBUMIN 3.3 G/DL (3.2-5.2); ALKALINE PHOSPHATASE 101 U/L (46-116); ALT/SGPT 41 U/L (7.0-40); AST/SGOT 24 U/L (<34); BILIRUBIN,TOTAL 0.4 MG/DL (0.3-1.2); BLOOD UREA NITROGEN 16 MG/DL (9-23); CALCIUM LEVEL 8.6 MG/DL (8.5-10.1); CARBON DIOXIDE LEVEL 26 MMOL/L (20-31); CHLORIDE LEVEL 107 MMOL/L (98-107); CREATININE FOR GFR 0.78 MG/DL (0.55-1.30); GLOMERULAR FILTRATION RATE > 60.0 (>60); GLUCOSE, FASTING 82 MG/DL (60-100); POTASSIUM SERUM 4.4 MMOL/L (3.5-5.1); SODIUM LEVEL 140 MMOL/L (136-145)
[2022-04-26 08:56] LABS: THYROID PEROXIDASE ANTIBODY < 28.0 U/ML (<60.0)
== END ==
LOC: M WUC 10:49
PROVIDERS: ATTEND Family Medicine
DX: E66.01 Morbid (severe) obesity due to excess calories (principal); R79.89 Other specified abnormal findings of blood chemistry

== ENCOUNTER 2022-08-10 13:03 | Observation (INO) | payer BC ==
[~2022-08-10] VITALS: Ht 157.5 cm; Wt 162.5 kg
[2022-08-10] MEDS ORDERED: ONDANSETRON 4MG 2ML VIAL IV ONE (13:50)
[2022-08-10] MEDS ORDERED: NS 1,000 ML IV ONE (13:55)
[2022-08-10 14:25] LABS: BASO # 0.1 10^3/uL (0.0-0.2); BASO % 0.8 % (0.0-1.0); EOS # 0.2 10^3/uL (0.0-0.5); EOS % 1.7 % (0.0-3.0); HEMATOCRIT 41.8 % (36.0-47.0); LYMPH % 22.2 % (24.0-44.0); MEAN CORPUSCULAR HEMOGLOBIN 29.5 pg (27.0-33.0); MEAN CORPUSCULAR HGB CONC 33.5 g/dl (32.0-36.5); MEAN CORPUSCULAR VOLUME 88.2 fl (80.0-96.0); MONO # 0.6 10^3/uL (0.0-0.8); MONO % 6.9 % (2.0-8.0); NEUTROPHILS % 68.2 % (36.0-66.0); PLATELET COUNT, AUTOMATED 224 10^3/uL (150-450); RED BLOOD COUNT 4.74 10^6/uL (4.00-5.40); WHITE BLOOD COUNT 8.8 10^3/uL (4.0-10.0)
[2022-08-10 15:01] LABS: ALBUMIN 3.9 G/DL (3.2-5.2); ALKALINE PHOSPHATASE 80 U/L (46-116); ALT/SGPT 45 U/L (7.0-40); AST/SGOT 55 U/L (<34); BILIRUBIN,TOTAL 0.6 MG/DL (0.3-1.2); BLOOD UREA NITROGEN 7 MG/DL (9-23); CALCIUM LEVEL 9.1 MG/DL (8.5-10.1); CARBON DIOXIDE LEVEL 19 MMOL/L (20-31); CHLORIDE LEVEL 105 MMOL/L (98-107); CREATININE FOR GFR 0.72 MG/DL (0.55-1.30); GLOMERULAR FILTRATION RATE > 60.0 (>60); GLUCOSE, FASTING 90 MG/DL (60-100); POTASSIUM SERUM 3.7 MMOL/L (3.5-5.1); SODIUM LEVEL 141 MMOL/L (136-145)
[2022-08-10 15:16] LABS: HCG, SERUM QUALITATIVE NEGATIVE (NEGATIVE)
[2022-08-10] MEDS ORDERED: FLEET OIL RETENTION ENEMA PR ONE (15:25)
[2022-08-10] MEDS ORDERED: MOM 30ML SUSPENSION UDC PO PRN (17:20)
[2022-08-10 17:57] LABS: RSV AMPLIFICATION NEGATIVE (NEGATIVE)
[2022-08-10] MEDS: BISACODYL 5MG TAB PO SCH (18:43)
[2022-08-10] MEDS ORDERED: ONDANSETRON 4MG TAB PO PRN (18:45)
[2022-08-10] MEDS ORDERED: ACETAMINOPHEN TAB 650MG DOSE (2X325MG) PO PRN (18:45)
[2022-08-10] MEDS ORDERED: PANT40TA29 PO (19:03)
[2022-08-10] MEDS ORDERED: FLIN1CHW PO (19:03)
[2022-08-10] MEDS ORDERED: B-12100010 PO (19:03)
[2022-08-10] MEDS ORDERED: HOME MED LIST COMPLETE! XX SCH (19:05)
[2022-08-10 19:46] VITALS: BP 119/67
[2022-08-10] MEDS: DOCUSATE SODIUM 100MG CAPSULE PO SCH (20:34)
[2022-08-10] MEDS: NS 1,000 ML IV SCH (20:35)
[2022-08-10 20:41] LABS: APPEARANCE, URINE MANUAL TURBID (CLEAR); COLOR, URINE MANUAL RED (YELLOW)
[2022-08-10 20:42] LABS: BILIRUBIN, URINE MANUAL 2+ (NEGATIVE); BLOOD URINE MANUAL POSITIVE (NEGATIVE); GLUCOSE, URINE (UA) MANUAL NEGATIVE (NEGATIVE); KETONE, URINE MANUAL 3+ mg/dL (NEGATIVE); LEUKOCYTE ESTERASE, URINE MAN POSITIVE (NEGATIVE); NITRITE, URINE MANUAL NEGATIVE (NEGATIVE); PH,URINE MAN 5.5 UNITS (5.0 - 7.0); PROTEIN, URINE MANUAL 2+ mg/dL (NEGATIVE); UROBILINOGEN, URINE MANUAL 4 MG mg/dl (NORMAL)
[2022-08-10 20:45] LABS: RBC, URINE TNTC /hpf (0-3)
[2022-08-10 20:48] LABS: OTHER CRYSTALS, URINE XRAY DYE /hpf; SQUAMOUS EPITHELIAL CELL URINE MOD AMOUNT /hpf (SMALL AMT)
[2022-08-10 20:52] LABS: BACTERIA, URINE SMALL AMOUNT; HYALINE CAST, URINE NONE SEEN /lpf (0-1); MUCUS, URINE SMALL AMOUNT (NEGATIVE)
[2022-08-10] MEDS: ONDANSETRON 4MG 2ML VIAL IV PRN (20:59)
[2022-08-10] MEDS ORDERED: SENNA 8.6 MG TAB (SENOKOT) PO SCH (21:00)
[2022-08-10] MEDS ORDERED: NYSTATIN 100,000 UNITS/GM TOPICAL PWD 15GM TOP PRN (21:30)
[2022-08-11] MEDS: NS 1,000 ML IV SCH (05:15)
[2022-08-11 06:00] VITALS: BP 110/58
[2022-08-11] MEDS: ONDANSETRON 4MG 2ML VIAL IV PRN ×2 (06:25→13:25)
[2022-08-11 07:37] LABS: HEMATOCRIT 40.5 % (36.0-47.0); MEAN CORPUSCULAR HEMOGLOBIN 28.8 pg (27.0-33.0); MEAN CORPUSCULAR HGB CONC 32.1 g/dl (32.0-36.5); MEAN CORPUSCULAR VOLUME 89.8 fl (80.0-96.0); PLATELET COUNT, AUTOMATED 183 10^3/uL (150-450); RED BLOOD COUNT 4.51 10^6/uL (4.00-5.40); WHITE BLOOD COUNT 5.5 10^3/uL (4.0-10.0)
[2022-08-11] MEDS ORDERED: SENNA 8.6 MG TAB (SENOKOT) PO PRN (08:05)
[2022-08-11 08:12] LABS: ALBUMIN 3.4 G/DL (3.2-5.2); ALKALINE PHOSPHATASE 76 U/L (46-116); ALT/SGPT 37 U/L (7.0-40); AST/SGOT 27 U/L (<34); BILIRUBIN,TOTAL 0.6 MG/DL (0.3-1.2); BLOOD UREA NITROGEN 7 MG/DL (9-23); CALCIUM LEVEL 8.4 MG/DL (8.5-10.1); CARBON DIOXIDE LEVEL 20 MMOL/L (20-31); CHLORIDE LEVEL 108 MMOL/L (98-107); CREATININE FOR GFR 0.78 MG/DL (0.55-1.30); GLOMERULAR FILTRATION RATE > 60.0 (>60); GLUCOSE, FASTING 121 MG/DL (60-100); MAGNESIUM LEVEL 1.6 MG/DL (1.8-2.4); POTASSIUM SERUM 2.7 MMOL/L (3.5-5.1); SODIUM LEVEL 143 MMOL/L (136-145); TOTAL PROTEIN 6.8 G/DL (5.7-8.2)
[2022-08-11] MEDS ORDERED: ENOXAPARIN 40MG/0.4ML SYRINGE (J1650 PER 10MG) SC SCH (09:00)
[2022-08-11] MEDS ORDERED: SCOPOLAMINE 1MG TRANSDERMAL PATCH TOP SCH (09:00)
[2022-08-11] MEDS: POTASSIUM CHLORIDE 10MEQ SR TABLET PO ONE ×3 (09:19→13:12)
[2022-08-11] MEDS: DOCUSATE SODIUM 100MG CAPSULE PO SCH (09:19)
[2022-08-11] MEDS: MAG SULF 1GM/100ML (MAG RUN) 1 GM in IV 1 EA IV SCH ×3 (09:20→11:40)
[2022-08-11] MEDS: BISACODYL 5MG TAB PO SCH (09:20)
[2022-08-11] MEDS: KCL 10MEQ/100ML SWI (KRUN) 10 MEQ in IV 1 EA IV SCH ×4 (09:34→12:50)
[2022-08-11] MEDS ORDERED: PROMETHAZINE 25 MG TAB PO ONE (09:35)
[2022-08-11] MEDS ORDERED: COLA100C5 PO (11:46)
[2022-08-11] MEDS ORDERED: SENN18TA PO (11:46)
[2022-08-11] MEDS ORDERED: MAGN400T2 PO (11:46)
[2022-08-11] MEDS ORDERED: MIRA3350 PO (11:46)
[2022-08-11] MEDS ORDERED: POTA-151 PO (11:46)
[2022-08-11] MEDS ORDERED: KCL 10MEQ/100ML SWI (KRUN) 10 MEQ in IV 1 EA IV SCH (12:00)
[2022-08-11 14:00] VITALS: BP 108/57
[2022-08-11 15:02] LABS: MAGNESIUM LEVEL 2.4 MG/DL (1.8-2.4); POTASSIUM SERUM 3.3 MMOL/L (3.5-5.1)
== END 2022-08-11 17:51 | disposition home or self-care (01) ==
LOC: M ED 13:03 → M ED INP 17:19 → M MSPAV 17:19 → ENRESERV 18:41 → M MSPAV 19:47
PROVIDERS: ADMIT Internal Medicine; ATTEND Internal Medicine
DX: K59.00 Constipation, unspecified (principal); Z98.84 Bariatric surgery status; E87.29 Other acidosis; Z79.899 Other long term (current) drug therapy; E87.6 Hypokalemia; E83.42 Hypomagnesemia
CPT/HCPCS: 36415; 74018; 74176; 80053; 81000; 83605; 83735; 84132; 84703; 85025; 85027; 87631; 96361; 96372; 96374; 96375; 96376; 99285; J1650; J2405; J3475

== ENCOUNTER 2023-01-30 08:21 | Emergency (ER) | payer BC ==
[~2023-01-30] VITALS: Ht 160 cm; Wt 128.4 kg
[~2023-01-30 08:21] MED LIST changes: +B-12100010 PO; +COLA100C5 PO; +FLIN1CHW PO; +MAGN400T2 PO; +MIRA3350 PO; +PANT40TA29 PO; +POTA-151 PO; +SENN-111 PO
[2023-01-30] MEDS ORDERED: ZIPR20CA21 (08:31)
[2023-01-30] MEDS ORDERED: VENL75CA47 (08:31)
[2023-01-30 10:22] LABS: BASO # 0.1 10^3/uL (0.0-0.2); BASO % 0.9 % (0.0-1.0); EOS # 0.1 10^3/uL (0.0-0.5); EOS % 0.9 % (0.0-3.0); HEMATOCRIT 40.6 % (36.0-47.0); HEMOGLOBIN 13.4 g/dl (12.0-15.5); LYMPH # 1.6 10^3/uL (1.5-5.0); LYMPH % 29.9 % (24.0-44.0); MEAN CORPUSCULAR HEMOGLOBIN 29.8 pg (27.0-33.0); MEAN CORPUSCULAR VOLUME 90.4 fl (80.0-96.0); MONO # 0.3 10^3/uL (0.0-0.8); MONO % 6.3 % (2.0-8.0); NEUTROPHILS # 3.3 10^3/uL (1.5-8.5); NEUTROPHILS % 61.6 % (36.0-66.0); PLATELET COUNT, AUTOMATED 185 10^3/uL (150-450); RED BLOOD COUNT 4.49 10^6/uL (4.00-5.40); WHITE BLOOD COUNT 5.4 10^3/uL (4.0-10.0)
[2023-01-30 10:50] LABS: LIPASE 25 U/L (12-53)
[2023-01-30 10:51] LABS: HCG, SERUM QUALITATIVE NEGATIVE (NEGATIVE)
[2023-01-30 10:52] LABS: ALBUMIN 3.5 G/DL (3.2-5.2); ALKALINE PHOSPHATASE 66 U/L (46-116); ALT/SGPT 64 U/L (7.0-40); AST/SGOT 65 U/L (<34); BILIRUBIN,DIRECT 0.4 MG/DL (<0.4); BLOOD UREA NITROGEN 11 MG/DL (9-23); CALCIUM LEVEL 8.8 MG/DL (8.5-10.1); CARBON DIOXIDE LEVEL 28 MMOL/L (20-31); CHLORIDE LEVEL 105 MMOL/L (98-107); CK-MB VALUE MASS < 1.0 NG/ML (<3.6); CPK CREATINE PHOSPHOKINASE 33 U/L (34-145); CREATININE FOR GFR 0.68 MG/DL (0.55-1.30); GLOMERULAR FILTRATION RATE > 60.0 (>60); GLUCOSE, FASTING 93 MG/DL (60-100); MB/CK RELATIVE INDEX 3.03 (< OR =4); POTASSIUM SERUM 3.5 MMOL/L (3.5-5.1); SODIUM LEVEL 140 MMOL/L (136-145); TOTAL PROTEIN 6.6 G/DL (5.7-8.2)
[2023-01-30 10:55] LABS: THYROID STIMULATING HORMONE 3.415 uIU/ML (0.55-4.78)
[2023-01-30 11:31] LABS: CK-MB VALUE MASS < 1.0 NG/ML (<3.6)
[2023-01-30 11:36] LABS: CPK CREATINE PHOSPHOKINASE 29 U/L (34-145); MB/CK RELATIVE INDEX 3.44 (< OR =4)
[2023-01-30 11:59] VITALS: BP 139/81; TEMP 97.8; O2SAT 97
== END 2023-01-30 12:23 | disposition home or self-care (01) ==
LOC: M ED 08:21
DX: R07.9 Chest pain, unspecified (principal); R00.1 Bradycardia, unspecified; Z79.810 Long term (current) use of selective estrogen receptor modulators (SERMs); Z79.899 Other long term (current) drug therapy; Z98.84 Bariatric surgery status

== ENCOUNTER → 2023-03-12 | Outpatient (REF) | payer BC ==
[~2023-03-12] MED LIST changes: +VENL75CA47; +ZIPR20CA21
== END ==
LOC: M SFHCLERA 16:50
PROVIDERS: ATTEND Family Medicine
DX: R30.0 Dysuria (principal)

== ENCOUNTER 2023-08-15 17:31 | Inpatient (IN) | payer BC ==
[~2023-08-15] VITALS: Ht 160 cm; Wt 98.1 kg
[~2023-08-15 17:31] MED LIST changes: -KLON0.5T PO; +KLON0.5T8 PO; -VENL75CA47; +VENL75CA47 PO
[2023-08-15 18:28] LABS: BASO # 0.1 10^3/uL (0.0-0.2); BASO % 0.6 % (0.0-1.0); EOS # 0.1 10^3/uL (0.0-0.5); EOS % 0.9 % (0.0-3.0); HEMATOCRIT 37.2 % (36.0-47.0); HEMOGLOBIN 12.1 g/dl (12.0-15.5); LYMPH # 1.8 10^3/uL (1.5-5.0); LYMPH % 18.6 % (24.0-44.0); MEAN CORPUSCULAR HEMOGLOBIN 30.3 pg (27.0-33.0); MEAN CORPUSCULAR HGB CONC 32.5 g/dl (32.0-36.5); MEAN CORPUSCULAR VOLUME 93.2 fl (80.0-96.0); MONO # 0.6 10^3/uL (0.0-0.8); MONO % 5.8 % (2.0-8.0); NEUTROPHILS # 6.9 10^3/uL (1.5-8.5); NEUTROPHILS % 73.7 % (36.0-66.0); PLATELET COUNT, AUTOMATED 168 10^3/uL (150-450); RED BLOOD COUNT 3.99 10^6/uL (4.00-5.40); WHITE BLOOD COUNT 9.4 10^3/uL (4.0-10.0)
[2023-08-15] MEDS: ONDANSETRON 4MG 2ML VIAL IV ONE (18:29)
[2023-08-15 18:44] LABS: AMPHETAMINES LEVEL URINE NEGATIVE (NEGATIVE); BARBITURATES URINE NEGATIVE (NEGATIVE); BENZODIAZEPINES URINE NEGATIVE (NEGATIVE); CANNABINOIDS URINE NEGATIVE (NEGATIVE); COCAINE METABOLITE URINE NEGATIVE (NEGATIVE); METHADONE URINE NEGATIVE (NEGATIVE); OPIATES URINE NEGATIVE (NEGATIVE); PHENCYCLIDINE URINE NEGATIVE (NEGATIVE)
[2023-08-15 18:46] LABS: ETHYL ALCOHOL (ETHANOL) < 0.003 % (0.000-0.010)
[2023-08-15 18:47] LABS: SALICYLATE LEVEL < 3.0 MG/DL (<30)
[2023-08-15 18:48] LABS: ALBUMIN 3.1 G/DL (3.2-5.2); ALKALINE PHOSPHATASE 74 U/L (46-116); ALT/SGPT 26 U/L (7.0-40); AST/SGOT 27 U/L (<34); BILIRUBIN,DIRECT 0.3 MG/DL (<0.4); BILIRUBIN,TOTAL 0.7 MG/DL (0.3-1.2); BLOOD UREA NITROGEN 12 MG/DL (9-23); CALCIUM LEVEL 8.5 MG/DL (8.5-10.1); CARBON DIOXIDE LEVEL 25 MMOL/L (20-31); CHLORIDE LEVEL 108 MMOL/L (98-107); CREATININE FOR GFR 0.71 MG/DL (0.55-1.30); GLOMERULAR FILTRATION RATE > 60.0 (>60); GLUCOSE, FASTING 74 MG/DL (60-100); POTASSIUM SERUM 3.8 MMOL/L (3.5-5.1); SODIUM LEVEL 142 MMOL/L (136-145); TOTAL PROTEIN 6.3 G/DL (5.7-8.2)
[2023-08-15 18:50] LABS: THYROID STIMULATING HORMONE 1.368 uIU/ML (0.55-4.78)
[2023-08-15 18:51] LABS: CPK CREATINE PHOSPHOKINASE 52 U/L (34-145)
[2023-08-15 18:59] LABS: HCG, SERUM QUALITATIVE NEGATIVE (NEGATIVE)
[2023-08-15] MEDS: LORazepam 2 MG/ML 1ML VIAL IV STA (23:14)
[2023-08-16] MEDS ORDERED: ZIPR60CA11 PO (09:42)
[2023-08-16] MEDS ORDERED: [UNRECOGNIZED DRUG - OTHER] PO (09:42)
[2023-08-16] MEDS ORDERED: HOME MED LIST COMPLETE! XX SCH (09:45)
[2023-08-16] MEDS ORDERED: MOM 30ML SUSPENSION UDC PO PRN (12:15)
[2023-08-16] MEDS ORDERED: MAALOX 30 ML SUSP *UDC PO PRN (12:15)
[2023-08-16] MEDS ORDERED: diphenhydrAMINE 25MG CAP PO PRN (12:15)
[2023-08-16] MEDS ORDERED: IBUPROFEN 400MG TAB PO PRN (12:15)
[2023-08-16] MEDS ORDERED: ACETAMINOPHEN TAB 650MG DOSE (2X325MG) PO PRN (12:15)
[2023-08-16 17:01] VITALS: BP 132/85; TEMP 98.2; O2SAT 98
[2023-08-16] MEDS ORDERED: traZODone 50 MG TAB PO PRN (21:00)
[2023-08-17 06:28] VITALS: BP 141/82; TEMP 98
[2023-08-17] MEDS: VENLAFAXINE **XR** 75MG CAPSULE PO SCH (11:32)
[2023-08-17] MEDS: lamoTRIgine 25MG TAB PO SCH (11:32)
[2023-08-17 16:05] VITALS: BP 122/71; TEMP 98.6; O2SAT 99
[2023-08-17] MEDS: ZIPRASIDONE 20MG CAPSULE (GEODON) PO SCH (22:08)
[2023-08-17] MEDS: GENTAMICIN SULFATE 0.1% OINT 15GM TOP SCH (22:09)
[2023-08-18 06:35] VITALS: BP 93/53; TEMP 97.3; O2SAT 100
[2023-08-18 15:37] VITALS: BP 122/77; TEMP 97.9; O2SAT 100
[2023-08-19 06:22] VITALS: BP 106/53; TEMP 97.4; O2SAT 97
[2023-08-19 15:36] VITALS: BP 116/56; TEMP 98.3; O2SAT 97
[2023-08-20 06:18] VITALS: BP 133/79; TEMP 96.9; O2SAT 98
[2023-08-20] MEDS ORDERED: LAMI25TA PO (10:50)
== END 2023-08-20 12:52 | disposition home or self-care (01) | DRG 753 ==
LOC: M ED 17:31 → EDBD 17:31 → M ED INP 08-16 12:15 → M PSY 08-16 16:02
PROVIDERS: ADMIT Student in an Organized Health Care Education/Training Program; ATTEND Student in an Organized Health Care Education/Training Program
DX: F31.9 Bipolar disorder, unspecified (principal); Z91.410 Personal history of adult physical and sexual abuse; Z79.899 Other long term (current) drug therapy; F41.9 Anxiety disorder, unspecified; F12.90 Cannabis use, unspecified, uncomplicated; F10.10 Alcohol abuse, uncomplicated

== ENCOUNTER → 2023-08-23 | Outpatient (REF) | payer BC ==
[~2023-08-23] MED LIST changes: +LAMI25TA PO; +ZIPR60CA11 PO; +[UNRECOGNIZED DRUG - OTHER] PO
== END ==
LOC: M SFHCLERA 16:30
PROVIDERS: ATTEND Family Medicine
DX: R30.0 Dysuria (principal)

== ENCOUNTER → 2023-12-14 | Outpatient (CLI) | payer BC | LOC: M CLY 11:01 | PROVIDERS: ATTEND Physician Assistant | DX: Z53.9 Procedure and treatment not carried out, unspecified reason (principal) ==

== ENCOUNTER → 2024-01-02 | Outpatient (CLI) | payer BC | LOC: M WUC 10:44 | PROVIDERS: ATTEND Physician Assistant | DX: S69.91XA Unspecified injury of right wrist, hand and finger(s), initial encounter (principal); X58.XXXA Exposure to other specified factors, initial encounter; Y92.9 Unspecified place or not applicable ==

== ENCOUNTER → 2024-07-10 | Outpatient (CLI) | payer BC ==
[~2024-07-10] MED LIST changes: +AMPH1TAB2 PO; +LAMO25TA4 PO; -SENN-111 PO; +SENN-165 PO; -ZIPR60CA11 PO; +ZIPR60CA21 PO
[2024-07-10 14:21] LABS: BASO # 0.1 10^3/uL (0.0-0.2); BASO % 0.7 % (0.0-1.0); EOS # 0.1 10^3/uL (0.0-0.5); EOS % 0.9 % (0.0-3.0); HEMATOCRIT 39.3 % (36.0-47.0); HEMOGLOBIN 12.5 g/dl (12.0-15.5); LYMPH # 2.3 10^3/uL (1.5-5.0); LYMPH % 28.3 % (24.0-44.0); MEAN CORPUSCULAR HGB CONC 31.8 g/dl (32.0-36.5); MEAN CORPUSCULAR VOLUME 94.2 fl (80.0-96.0); MONO # 0.4 10^3/uL (0.0-0.8); NEUTROPHILS # 5.3 10^3/uL (1.5-8.5); NEUTROPHILS % 64.9 % (36.0-66.0); PLATELET COUNT, AUTOMATED 210 10^3/uL (150-450); RED BLOOD COUNT 4.17 10^6/uL (4.00-5.40); WHITE BLOOD COUNT 8.2 10^3/uL (4.0-10.0)
[2024-07-10 14:41] LABS: BLOOD UREA NITROGEN 13 MG/DL (9-23); CARBON DIOXIDE LEVEL 28 MMOL/L (20-31); CHLORIDE LEVEL 108 MMOL/L (98-107); CREATININE FOR GFR 0.74 MG/DL (0.55-1.30); GLOMERULAR FILTRATION RATE > 60.0 (>60); GLUCOSE, FASTING 64 MG/DL (60-100); POTASSIUM SERUM 3.8 MMOL/L (3.5-5.1); SODIUM LEVEL 142 MMOL/L (136-145)
== END ==
LOC: M WUC 11:56
PROVIDERS: ATTEND Family Medicine
DX: Z01.818 Encounter for other preprocedural examination (principal)

== ENCOUNTER 2024-07-15 10:28 | Observation (INO) | payer BC ==
[~2024-07-15] VITALS: Ht 157.5 cm; Wt 79.0 kg
[~2024-07-15 10:28] MED LIST changes: +LIDOCAINE 2% 100MG/5ML SDV (FOR ANES.) As Ordered ONE; +ONDANSETRON 4MG 2ML VIAL As Ordered ONE; +ROCURONIUM BROMIDE 50MG/5ML VIAL As Ordered ONE; +SUGAMMADEX SODIUM 500 MG/5 ML VIAL (BRIDION) As Ordered ONE; +propofoL 200 MG/20 ML VIAL As Ordered ONE
[2024-07-15] MEDS ORDERED: fentaNYL 250 MCG/5 ML INJECTION As Ordered ONE (11:11)
[2024-07-15] MEDS ORDERED: MIDAZOLAM INJ 2MG/2ML VIAL As Ordered ONE (11:11)
[2024-07-15] MEDS: ceFAZolin SOD 2 GM IV ONCE IV ONE (13:10)
[2024-07-15] MEDS ORDERED: ACETAMINOPHEN 1000MG/100ML IV BAG As Ordered ONE (13:14)
[2024-07-15] MEDS: HEPARIN SOD (PORCINE) 5000UNITS/ML 1ML VIAL/SYRINGE SQ ONE (13:17)
[2024-07-15] MEDS ORDERED: HYDROmorphone HCL 2MG/ML 1ML VIAL As Ordered ONE (14:02)
[2024-07-15] MEDS: GENTAMICIN SULF 80MG/2ML VIAL As Ordered ONE (16:30)
[2024-07-15] MEDS ORDERED: MEPERIDINE 25 MG/ML 1ML VIAL IV PRN (17:20)
[2024-07-15] MEDS ORDERED: oxyCODONE 5MG TAB PO PRN (17:20)
[2024-07-15] MEDS ORDERED: HYDROMORPHONE HCL 0.5 MG/ 0.5 ML SYRINGE IV PRN (17:20)
[2024-07-15] MEDS ORDERED: fentaNYL 100 MCG/2 ML INJECTION IV PRN (17:20)
[2024-07-15] MEDS: BUPivacaine LIPOSOME/PF 266MG 20ML VIAL (13.3MG/ML)(EXPAREL) As Ordered ONE (17:33)
[2024-07-15] MEDS ORDERED: PERCOCET 5MG/325MG TAB PO PRN (17:50)
[2024-07-15] MEDS ORDERED: ACETAMINOPHEN 325 MG TAB PO PRN (17:50)
[2024-07-15] MEDS: ONDANSETRON 4MG 2ML VIAL IV PRN (17:54)
[2024-07-15] MEDS: METOCLOPRAMIDE INJ 10MG/2ML VIAL IV PRN (18:28)
[2024-07-15 18:57] VITALS: BP 118/62; TEMP 96.8; O2SAT 98
[2024-07-15 19:15] VITALS: BP 111/61; TEMP 96.6; O2SAT 100
[2024-07-15 20:15] VITALS: BP 112/60; TEMP 97; O2SAT 98
[2024-07-15] MEDS: FLUCONAZOLE 400 MG in IV 1 EA IV ONE (20:18)
[2024-07-15 21:15] VITALS: BP 102/56; TEMP 97.2; O2SAT 95
[2024-07-15 22:15] VITALS: BP 103/62; TEMP 97.2; O2SAT 96
[2024-07-15] MEDS: traMADol 50 MG TAB PO PRN (22:49)
[2024-07-15] MEDS: ceFAZolin SODIUM 2 GM in DEXTROSE 5% (D5W) ADV/MINI-BAG 50 ML IV SCH (22:51)
[2024-07-15 23:15] VITALS: BP 115/55; TEMP 97.2; O2SAT 98
[2024-07-16 03:15] VITALS: BP 106/54; TEMP 97; O2SAT 96
[2024-07-16 06:53] LABS: HEMOGLOBIN 10.7 g/dl (12.0-15.5); MEAN CORPUSCULAR HEMOGLOBIN 30.9 pg (27.0-33.0); MEAN CORPUSCULAR HGB CONC 33.4 g/dl (32.0-36.5); MEAN CORPUSCULAR VOLUME 92.5 fl (80.0-96.0); PLATELET COUNT, AUTOMATED 152 10^3/uL (150-450); RED BLOOD COUNT 3.46 10^6/uL (4.00-5.40); WHITE BLOOD COUNT 13.5 10^3/uL (4.0-10.0)
[2024-07-16] MEDS: ONDANSETRON 4MG 2ML VIAL IV PRN (08:03)
[2024-07-16] MEDS ORDERED: IRON65TA2 PO (10:09)
[2024-07-16] MEDS ORDERED: TRAM50TA2 PO (10:09)
[2024-07-16 12:00] VITALS: BP 103/50; TEMP 97.3; O2SAT 98
== END 2024-07-16 14:00 | disposition home or self-care (01) ==
LOC: M SDC 10:28 → M RR INP 10:29 → M MS5PR 18:45
PROVIDERS: ADMIT Plastic Surgery Surgery of the Hand; ATTEND Plastic Surgery Surgery of the Hand
DX: M54.07 Panniculitis affecting regions of neck and back, lumbosacral region (principal); Z98.84 Bariatric surgery status; L30.4 Erythema intertrigo; F31.9 Bipolar disorder, unspecified; F32.A Depression, unspecified; Z79.899 Other long term (current) drug therapy
CPT/HCPCS: 15830; 15847; 36415; 81025; 85027; 88300; 96365; 96366; 96367; 96375; J0131; J0665; J0666; J0690; J1100; J1171; J1450; J1580; J2250; J2405; J2765; J3010